=== PATIENT | male | born 1990 | race Two or more races ===

== ENCOUNTER 2018-04-28 18:25 | Emergency (ER) | payer SELFPAY ==
[~2018-04-28] VITALS: Ht 180.3 cm; Wt 114.8 kg
[2018-04-28 18:40] VITALS: BP 136/92
--- NOTE | 2018-04-28 19:43 | Emergency Room Report ---
History of Present Illness General Chief Complaint: Earache Source: Patient Present Illness HPI patient is a 27-year-old male with no significant past medical history severe complaining of the tip of his head on being stuck in his right ear times few hours, patient complains of minimal hearing in the affected side however denies pain and discharge. She didn't try using scissors to remove the foreign object however was not successful. Denies vertigo, dizziness, nausea vomiting, headache, no other associated symptoms Allergies: Coded Allergies: No Known Allergies (Unverified , 04/28/18) Patient History Past Medical History: see triage record Past Surgical History: none Pertinent Family History: none Immunizations: UTD Reviewed Nursing Documentation: PMH: Agreed; PSxH: Agreed Nursing Documentation-PMH Past Medical History: No Stated History Review of Systems All Other Systems: negative except mentioned in HPI Physical Exam Vital Signs Date Time Temp Pulse Resp B/P (MAP) Pulse Ox O2 Delivery O2 Flow Rate FiO2 04/28/18 18:33 98.6 94 17 136/92 98 Room Air Sp02 EP Interpretation: reviewed, normal General Appearance: normal inspection, well appearing, no apparent distress Head: normocephalic, atraumatic Eyes: bilateral eye normal inspection, bilateral eye PERRL ENT: hearing grossly normal, normal pharynx, other - foreign body in right ear minimal erythema of the right external ear canal Neck: normal inspection, full range of motion, supple Respiratory: normal inspection, chest non-tender, no rhonchi, no wheezing Cardiovascular #1: normal inspection, no edema, no murmur Gastrointestinal: normal inspection, soft Rectal: deferred Genitourinary: deferred Musculoskeletal: normal inspection, back normal Neurologic: normal inspection, alert, oriented x3 Psychiatric: normal inspection, judgement/insight normal, memory normal Skin: normal inspection, normal color, no rash, warm/dry Lymphatic: normal inspection, no adenopathy Medical Decision Making PA Attestation all diagnosis and treatment plans were reviewed by my supervising physician Dr North Diagnostic Impression: Primary Impression: Earache, right Additional Impressions: Ear foreign body Otitis externa ER Course patient is a 27-year-old male with no significant past medical history severe complaining of the tip of his head on being stuck in his right ear times few hours, patient complains of minimal hearing in the affected side however denies pain and discharge. She didn't try using scissors to remove the foreign object however was not successful. Denies vertigo, dizziness, nausea vomiting, headache, no other associated symptoms Ddx considered but are not limited to Foreign body in ear, earache, otitis externa Vital signs: are WNL, pt. is afebrile H&PE are most consistent with foreign body in right ear, earache ORDERS: irrigation, ofloxacin eardrops ED INTERVENTIONS: right ear irrigation and removal of foreign body DISCHARGE: At this time pt. is stable for d/c to home. Will provide printed patient care instructions, and any necessary prescriptions. Care plan and follow up instructions have been discussed with the patient prior to discharge. avoid wearing earphones, avoid using Q-tips to clean the right ear, use the drops as directed Last Vital Signs Date Time Temp Pulse Resp B/P (MAP) Pulse Ox O2 Delivery O2 Flow Rate FiO2 04/28/18 18:33 98.6 94 17 136/92 98 Room Air Disposition: HOME, SELF-CARE Condition: Stable Scripts Ofloxacin (OFLOXACIN) 5 Ml Drops 5 ML OT BID for 7 Days, #70 ML Prov: Loreto Chopra 04/28/18 Patient Instructions: Earache, Otitis Externa, [id number] Additional Instructions: and avoid drying earphones, otherwise putting his head or any other foreign objects in the ear, antibiotic drops are given due to the irritation caused by report foreign body inside your ear Loreto Chopra Apr 28, 2018 19:43
[2018-04-28] MEDS ORDERED: OFLOXACIN5 ML OT (19:44)
[2018-04-28 19:50] VITALS: BP 136/88
== END 2018-04-28 19:50 | disposition home or self-care (01) ==
LOC: EMR 18:48
DX: T16.1XXA Foreign body in right ear, initial encounter (principal); W45.8XXA Other foreign body or object entering through skin, initial encounter; W22.8XXA Striking against or struck by other objects, initial encounter; Y92.018 Other place in single-family (private) house as the place of occurrence of the external cause; F17.200 Nicotine dependence, unspecified, uncomplicated
CPT/HCPCS: 69210; 99282